=== PATIENT | female | born 1995 | race Caucasian/White ===

== ENCOUNTER 2016-10-19 22:20 | Emergency (ER) | payer BC ==
[~2016-10-19] VITALS: Ht 177.8 cm; Wt 69.5 kg
[2016-10-19] MEDS ORDERED: GLYC1SUP71 PR (23:47)
[2016-10-19] MEDS ORDERED: MAGN2400 PO (23:47)
[2016-10-19] MEDS ORDERED: MAGN100T6 PO (23:48)
[2016-10-19] MEDS ORDERED: MULT-6 PO (23:49)
[2016-10-19] MEDS ORDERED: CA C1TAB35 PO (23:49)
[2016-10-19] MEDS ORDERED: MELA1TAB8 PO (23:50)
[2016-10-19] MEDS ORDERED: PSYL0.5215 PO (23:50)
[2016-10-19] MEDS ORDERED: ADAP45GE EXT (23:52)
[2016-10-19] MEDS ORDERED: ONDANSETRON ODT 4 MG ONE (23:54)
[2016-10-20] MEDS ORDERED: ONDANSETRON ODT 4 MG PO ONE
[2016-10-20 00:18] LABS: BLOOD UREA NITROGEN 12 mg/dL (7-18)
[2016-10-20 00:41] VITALS: BP 106/29
[2016-10-20] MEDS ORDERED: PINK LADY ENEMA 1,000 ML PR STA (00:49)
== END 2016-10-20 01:37 | disposition home or self-care (01) ==
LOC: ED 23:59
DX: K59.00 Constipation, unspecified (principal)
CPT/HCPCS: 36415; 74020; 80048; 81003; 84703; 85025; 99285; Q0162

== ENCOUNTER 2016-11-22 12:05 | Emergency (ER) | payer BC ==
[~2016-11-22] VITALS: Ht 177.8 cm; Wt 71.0 kg
[~2016-11-22 12:05] MED LIST: ADAP45GE EXT; CA C1TAB35 PO; GLYC1SUP71 PR; MAGN100T6 PO; MAGN2400 PO; MELA1TAB8 PO; MULT-6 PO; PSYL0.5215 PO
[2016-11-22 12:06] VITALS: BP 108/70
[2016-11-22 12:55] LABS: HEMATOCRIT 40.5 % (34.6-47.8); HEMOGLOBIN 13.2 g/dL (11.7-16.4); WHITE BLOOD COUNT 10.1 x10^3/uL (4.5-13.2)
[2016-11-22 13:01] LABS: ASPARTATE AMINO TRANSFERASE 14 U/L (15-37); BLOOD UREA NITROGEN 11 mg/dL (7-18)
== END 2016-11-22 14:02 | disposition home or self-care (01) ==
LOC: ED 13:50
DX: K59.00 Constipation, unspecified (principal); Z88.8 Allergy status to other drugs, medicaments and biological substances; Z88.5 Allergy status to narcotic agent; Z88.6 Allergy status to analgesic agent
CPT/HCPCS: 36415; 74020; 80053; 84703; 85025; 99285